=== PATIENT | female | born 1990 | race Caucasian/White ===

== ENCOUNTER 2019-10-07 19:03 | Emergency (ER) | payer OTHER ==
[~2019-10-07] VITALS: Ht 154.9 cm; Wt 74.8 kg
[2019-10-07 19:20] VITALS: Ht 154.9 cm; Wt 74.8 kg
[2019-10-07 21:05] VITALS: BP 120/69
== END 2019-10-07 21:05 | disposition home or self-care (01) ==
LOC: ED 19:03
DX: M62.830 Muscle spasm of back (principal)